=== PATIENT | male | born 1945 | race Caucasian/White ===

== ENCOUNTER 2016-09-15 12:21 | Emergency (ER) | payer MEDICARE, OTHER ==
--- NOTE | 2016-09-15 13:33 | EDM.PDOC ---
[id number] Complaint: FINGER GETING BLACK [id number] Time Seen by Provider: 09/15/16 13:20 Source of Information: Reports: Patient, RN, RN Notes Reviewed History Limitations: Reports: No Limitations - History of Present Illness INITIAL COMMENTS - FREE TEXT/NARRATIVE: C/O a bluish color to left ring finger. Pt doesn't recall hitting it on anything , although he now thinks maybe he bumped it while working in his garage yesterday. Denies pain, numbness or tingling. Onset: Unknown/Unsure Duration: Constant Severity: Mild Improves with: Reports: None Worsens with: Reports: None - Related Data Allergies Allergy/AdvReac Type Severity Reaction Status Date / Time No Known Allergies Allergy Verified 06/02/13 12:51 Home Meds: Home Meds Ascorbic Acid [Vitamin C] 1,000 mg PO DAILY 06/17/13 [History] Aspirin [Halfprin] 81 mg PO DAILY 06/17/13 [History] Calc/D3/Mag/Zn/Street Sprinkler/Juan F/[place] [Calcium 600 MG Plus Vit D] 1 each PO DAILY [History] Calcium Carbonate [Calcium] 1,000 mg PO 06/17/13 [History] Glucosamine [Glucosamine Sulfate] 500 mg PO DAILY 06/17/13 [History] Magnesium 30 mg PO DAILY 06/17/13 [History] Naproxen Sodium [Aleve] 220 mg PO PRN 06/17/13 [History] Vitamin B Complex [B Complex] 1 each PO DAILY 06/17/13 [History] atorvaSTATin [Lipitor] 20 mg PO BEDTIME 06/17/13 [History] Past Medical History HEENT History: Reports: Impaired Vision Cardiovascular History: Reports: High Cholesterol - Past Surgical History HEENT Surgical History: Reports: Tonsillectomy GI Surgical History: Reports: Appendectomy, Hernia Repair/Other Social & Family History - Tobacco Use Smoking Status *Q: Never Smoker Second Hand Smoke Exposure: No - Caffeine Use Caffeine Use: Reports: Coffee, Soda, Tea - Alcohol Use Days Per Week of Alcohol Use: 0 - Recreational Drug Use Recreational Drug Use: No Review of Systems - Review of Systems Review Of Systems: ROS reveals no pertinent complaints other than HPI. ED EXAM, GENERAL - Physical Exam Exam: See Below Exam Limited By: No Limitations General Appearance: Alert, WD/WN, No Apparent Distress Nose: Normal Inspection, No Blood Throat/Mouth: Normal Inspection Head: Atraumatic, Normocephalic Neck: Normal Inspection Respiratory/Chest: No Respiratory Distress Peripheral Pulses: 3+: Radial (L), Radial (R) Extremities: Normal Range of Motion, Non-Tender, Normal Capillary Refill, Other (left 4th finger with contusion/bruise, no swelling, skin is intact). No: Joint Swelling, Increased Warmth Neurological: Alert, Oriented, No Motor/Sensory Deficits Psychiatric: Anxious Skin Exam: Warm, Dry Course - Vital Signs Last Recorded V/S: Last Vital Signs Temp 36.9 C 09/15/16 12:51 Pulse 64 09/15/16 12:51 Resp 18 09/15/16 12:51 BP 141/67 H 09/15/16 12:51 Pulse Ox 94 L 09/15/16 12:51 Departure - Departure Time of Disposition: 13:29 Disposition: Home, Self-Care 01 Condition: Good Clinical Impression: Contusion of finger of left hand Qualifiers: Encounter type: initial encounter Finger: ring finger Damage to nail status: without damage Qualified Code(s): S60.042A - Contusion of left ring finger without damage to nail, initial encounter - Discharge Information Instructions: Hand Contusion, [id number]-Lyil Forms: ED Department Discharge Additional Instructions: Ice as needed. Follow up in clinic if you develop any new or unexplained bruises over the last several days.
== END 2016-09-15 13:39 | disposition home or self-care (01) ==
LOC: DL.ED 12:21
CPT/HCPCS: 99282; 99283